=== PATIENT | female | born 1995 | race Caucasian/White ===

== ENCOUNTER 2019-04-09 21:14 | Outpatient (CLI) | payer OTHER ==
[~2019-04-09] VITALS: Ht 165.1 cm; Wt 56.8 kg
[2019-04-09 21:24] VITALS: Ht 165.1 cm; Wt 56.8 kg
[2019-04-09] MEDS ORDERED: PRENAVITE1 TAB PO (21:27)
[2019-04-09 21:43] VITALS: BP 132/78
[2019-04-09 21:46] LABS: BASOPHILS 0.1 % (0-2); EOSINOPHILS 0.3 % (0-7); HEMATOCRIT 37.9 % (36.0-48.0); HEMOGLOBIN 13.2 g/dL (12-16); IMMATURE GRANULOCYTES 0.3 % (0-5); LYMPHOCYTES 6.9 % (15-50); MCH 31.7 pg (26.0-34.0); MCHC 34.8 g/dL (31.0-37.0); MCV 90.9 fL (80.0-100.0); MEAN PLATELET VOLUME 9.8 fL (7.4-10.4); MONOCYTES 4.7 % (2-11); NEUTROPHILS 87.7 % (40-80); PLATELET COUNT 175 10x3/uL (130-400); RBC 4.17 10x6/uL (4.00-5.40); RDW 12.6 % (11.5-14.5); WBC 17.4 10x3/uL (4.8-10.8)
[2019-04-09 21:47] LABS: APPEARANCE CLEAR (CLEAR); BILIRUBIN NEGATIVE (NEGATIVE); COLOR YELLOW (YELLOW); GLUCOSE NEGATIVE (NEGATIVE); KETONE MODERATE mg/dL (NEGATIVE); NITRITE POSITIVE (NEGATIVE); PROTEIN NEGATIVE (NEGATIVE); UROBILINOGEN NORMAL (NORMAL)
[2019-04-09 21:50] LABS: BACTERIA MANY /hpf (NEGATIVE); EPITHELIAL CELLS 0-5 /hpf (0-5); RED CELLS - URINE OCC /hpf (0-5); WHITE CELLS - URINE 0-5 /hpf (NEGATIVE)
[2019-04-09 21:58] LABS: CALC OSMOLALITY 276 mosm/kg (275-300); CALCIUM 8.8 mg/dL (8.5-10.1); CARBON DIOXIDE 24.6 mmol/L (21.0-32.0); CHLORIDE - SERUM 104 mmol/L (98-107); CREATININE - SERUM 0.7 mg/dL (0.6-1.3); GLUCOSE 94 mg/dL (74-106); POTASSIUM - SERUM 3.4 mmol/L (3.5-5.1); SODIUM 139 mmol/L (136-145); UREA NITROGEN 11 mg/dL (7-18); eGFR NON AFRICAN AMERICAN > 90 mL/min (90-120)
[2019-04-09 22:01] LABS: ALBUMIN 3.3 g/dL (3.4-5.0); ALKALINE PHOSPHATASE 77 U/L (46-116); ALT (SGPT) 24 U/L (10-68); BILIRUBIN - TOTAL 0.28 mg/dL (0.2-1.3)
[2019-04-10 01:13] LABS: APPEARANCE CLEAR (CLEAR); BILIRUBIN NEGATIVE (NEGATIVE); COLOR STRAW (YELLOW); GLUCOSE 1000 mg/dL (NEGATIVE); KETONE NEGATIVE (NEGATIVE); NITRITE NEGATIVE (NEGATIVE); PROTEIN TRACE mg/dL (NEGATIVE); SPECIFIC GRAVITY 1.005 (1.005-1.020); UROBILINOGEN NORMAL (NORMAL)
[2019-04-10 04:40] LABS: BASOPHILS 0.1 % (0-2); HEMATOCRIT 36.9 % (36.0-48.0); HEMOGLOBIN 12.4 g/dL (12-16); IMMATURE GRANULOCYTES 0.3 % (0-5); LYMPHOCYTES 12.9 % (15-50); MCH 31.2 pg (26.0-34.0); MCHC 33.6 g/dL (31.0-37.0); NEUTROPHILS 78.7 % (40-80); PLATELET COUNT 153 10x3/uL (130-400); RBC 3.97 10x6/uL (4.00-5.40); RDW 12.5 % (11.5-14.5)
[2019-04-10 04:45] LABS: MCV 92.9 fL (80.0-100.0); WBC 11.6 10x3/uL (4.8-10.8)
== END 2019-04-10 05:20 | disposition home or self-care (01) ==
LOC: D.LDO 21:14 → D.ER 21:14 → D.LD 21:14 → EDSTATUS 21:55 → D.LD 21:57 → D.LDO 04-10 05:20
PROVIDERS: Family Medicine; ATTEND Obstetrics & Gynecology
DX: O26.92 Pregnancy related conditions, unspecified, second trimester (principal); Z3A.20 20 weeks gestation of pregnancy; M54.9 Dorsalgia, unspecified; V49.9XXA Car occupant (driver) (passenger) injured in unspecified traffic accident, initial encounter

== ENCOUNTER 2019-04-11 10:20 | Outpatient (CLI) | payer OTHER ==
[2019-04-09 21:24] VITALS: BMI 20.8
[~2019-04-11 10:20] MED LIST: PRENAVITE1 TAB PO
== END 2019-04-11 12:03 | disposition home or self-care (01) ==
LOC: D.LDO 10:20
PROVIDERS: ATTEND Obstetrics & Gynecology
DX: O26.899 Other specified pregnancy related conditions, unspecified trimester (principal); M54.9 Dorsalgia, unspecified; R10.11 Right upper quadrant pain

== ENCOUNTER 2019-08-02 17:27 | Inpatient (IN) | payer OTHER ==
[2019-08-02] VITALS (7 sets, daily range): BP systolic 151–183; BP diastolic 81–96
[~2019-08-02] VITALS: Ht 165.1 cm; Wt 72.7 kg
[2019-08-02 19:04] LABS: HEMATOCRIT 38.4 % (36.0-48.0); HEMOGLOBIN 13.1 g/dL (12-16); MCHC 34.1 g/dL (31.0-37.0); MCV 87.9 fL (80.0-100.0); RBC 4.37 10x6/uL (4.00-5.40); WBC 11.2 10x3/uL (4.8-10.8)
--- NOTE | 2019-08-02 21:56 | NUR ---
2100 - BECAUSE OF UNIQUE CIRCUMSTANCES OF DELIVERY AND GENERAL ANESTHESIA, DECISION WAS MADE BY JENNIFER OROZCO RN TO TRANSPORT THE PT TO THE MAIN RECOVERY ROOM UPSTAIRS FOR PHASE 1 RECOVERY. RECOVERY WAS UNREMARKABLE EXCEPT EROS T THE PT HAD WELTS ALONG HER LEFT FOREARM AFTER ADMINISTRATION OF DEMEROL FOR INTENSE SHAKING. PT HAD NO DISCOMFORT AND WELTS WERE DETERMINED TO NOT NEED TREATMENT. RECEIVING NURSE AND SURGEON INFORMED.
--- NOTE | 2019-08-02 22:30 | NUR ---
RASHID CATH EMPTIED AT THIS TIME. 150 ML NOTED. Randal ARGUETA RN
[2019-08-02 23:39] LABS: HEMATOCRIT 34.7 % (36.0-48.0); HEMOGLOBIN 11.6 g/dL (12-16); LYMPHOCYTES 3.3 % (15-50); MCHC 33.4 g/dL (31.0-37.0); MCV 86.8 fL (80.0-100.0); MEAN PLATELET VOLUME 10.7 fL (7.4-10.4); NEUTROPHILS 94.5 % (40-80); PLATELET COUNT 184 10x3/uL (130-400); RDW 11.9 % (11.5-14.5); WBC 24.7 10x3/uL (4.8-10.8)
[2019-08-02 23:45] LABS: CALC OSMOLALITY 272 mosm/kg (275-300); CALCIUM 8.1 mg/dL (8.5-10.1); CARBON DIOXIDE 24.5 mmol/L (21.0-32.0); CHLORIDE - SERUM 103 mmol/L (98-107); CREATININE - SERUM 0.7 mg/dL (0.6-1.3); GLUCOSE 107 mg/dL (74-106); POTASSIUM - SERUM 4.1 mmol/L (3.5-5.1); SODIUM 137 mmol/L (136-145); UREA NITROGEN 10 mg/dL (7-18); eGFR NON AFRICAN AMERICAN > 90 mL/min (90-120)
[2019-08-02 23:51] LABS: ALBUMIN 2.5 g/dL (3.4-5.0); ALKALINE PHOSPHATASE 130 U/L (30-120); ALT (SGPT) 22 U/L (10-68); BILIRUBIN - DIRECT 0.08 mg/dL (0.00-0.30); BILIRUBIN - INDIRECT 0.09 mg/dL (0.00-1.00); BILIRUBIN - TOTAL 0.17 mg/dL (0.2-1.3); PROTEIN - SERUM 5.8 g/dL (6.4-8.2)
[2019-08-03] VITALS (14 sets, daily range): BP systolic 119–166; BP diastolic 68–107; Ht 165.1 cm; Wt 72.7 kg
[2019-08-03 00:19] LABS: BILIRUBIN NEGATIVE (NEGATIVE); GLUCOSE NEGATIVE (NEGATIVE); KETONE NEGATIVE (NEGATIVE); NITRITE NEGATIVE (NEGATIVE); UROBILINOGEN NORMAL (NORMAL)
[2019-08-03 00:21] LABS: BACTERIA NONE SEEN /hpf (NEGATIVE); EPITHELIAL CELLS 0-5 /hpf (0-5); RED CELLS - URINE 0-5 /hpf (0-5); WHITE CELLS - URINE 0-5 /hpf (NEGATIVE)
--- NOTE | 2019-08-03 00:30 | NUR ---
PT RESTING AT THIS TIME. NO COMPLAITNS OF PAIN. Randal ARGUETA RN
--- NOTE | 2019-08-03 01:06 | NUR ---
to room, pt resting quietly, respirations even and unlabored, did not disturb.
--- NOTE | 2019-08-03 02:15 | NUR ---
2140 PT REC'D FROM RECOVERY AT THIS TIME. FUNDUS FIRM AND MIDLINE U/1 WITH MODERATE LOCHIA NOTED. PITOCIN 20 UNITS IN 1 LITER NS TO PUMP AT RATE OF 125 ML/HR TO THE LEFT HAND. SITE CLEAR AND PATENT. DENIES PAIN. NO ACUTE DISTRESS NOTED. CALL LIGHT IN EASY REACH. Randal ARGUETA RN
--- NOTE | 2019-08-03 04:11 | NUR ---
PT REC'D IN BED AT THIS TIME. RESTING. VSS THIS AM. PERICARE PROVIDED. FUNDUS REMAINS FIRM. Randal ARGUETA RN
[2019-08-03 06:38] LABS: HEMATOCRIT 30.3 % (36.0-48.0); HEMOGLOBIN 10.2 g/dL (12-16); MCH 29.4 pg (26.0-34.0); MCHC 33.7 g/dL (31.0-37.0); MCV 87.3 fL (80.0-100.0); MEAN PLATELET VOLUME 10.7 fL (7.4-10.4); PLATELET COUNT 182 10x3/uL (130-400); RBC 3.47 10x6/uL (4.00-5.40); WBC 24.9 10x3/uL (4.8-10.8)
--- NOTE | 2019-08-03 06:45 | NUR ---
RASHID CATH EMPTIED AT THIS TIME. 700 ML OF CLEAR YELLOW URINE NOTED. Randal ARGUETA RN
[2019-08-03 07:06] LABS: LYMPHOCYTES 8 % (15-50); MONOCYTES 3 % (2-11); NEUTROPHILS 89 % (40-80)
[2019-08-03 07:07] LABS: PLATELET ESTIMATE NORMAL
--- NOTE | 2019-08-03 08:25 | NUR ---
SHIFT ASSESSMENT COMPLETED PER FLOWSHEET. VSS. FUNDUS FIRM MIDLINE AND U1 WITH SMALL AMT RUBRA LOCHIA, NO CLOTS NOTED. ELMO AND RASHID CARE DONE. PERIPAD CHANGED. 200 MLS CLEAR LIGHT YELLOW URINE EMPTIED FROM RASHID. DRSG TO LOWER TRANSVERSE ABD INCISION CLEAN DRY AND INTACT WITH NO DRAINAGE NOTED. IN VISITORS ARMS. PT REPORTS THAT SHE HAS PASSED FLATUS AND PASSED FLATUS DURING PERICARE WITH RN. SCD'S ON BLE CURRENTLY. RASHID CONTINUES TO DRAIN TO BEDSIDE DRAINAGE SYSTEM. TORADOL GIVEN AND EDUCATED ON MED, VERBALIZES UNDERSTANDING. REQUESTS TO GET OOB, WILL NOTIFY DR. HUBER AND REPORT OUTPT AND PT REQUEST TO GET OOB. POC DISCUSSED WITH PT AND PT FAMILY AT BEDSIDE, VERBALIZES UNDERSTANDING AND DENIES NEEDS. BED IN LOW POSITION, SRUP X2. CALL LIGHT AND PHONE WITHIN REACH. WILL CONTINUE TO MONITOR.
--- NOTE | 2019-08-03 11:29 | NUR ---
PAIN MEDICATION GIVEN PER REQUEST- RATES PAIN A 4 ON SCALE OF 0-10. RASHID CATH REMOVED WITH 100CC URINE IN CONTAINER. INSTRUCTED PT TO CALL WHEN NEEDS TO VOID.
--- NOTE | 2019-08-03 12:29 | NUR ---
UP TO BATHROOM- VOIDED 750CC. INTO SHOWER- TOLERATED WELL. BIKINI LINE DRESSING REMOVED- STERI STRIPS INTACT AND APPEARANCE WNL. STATES THAT IS PASSING GAS. DENIES NEEDS- STATES FEELS GOOD AFTER SHOWER.
--- NOTE | 2019-08-03 13:24 | OP ---
PATIENT NAME: JAMISON ROSE MEDICAL RECORD: [id number] :97 LOCATION:[id number] ADMISSION DATE:08/02/19 SURGEON: MARGARITO HUBER MD DATE OF OPERATION: 08/02/2019 PREOPERATIVE DIAGNOSES: 1. Active labor at 36 weeks. 2. Breech presentation. POSTOPERATIVE DIAGNOSES: 1. Active labor at 36 weeks. 2. Breech presentation PROCEDURE: Primary low transverse section. SURGEON: Margarito Huber MD PEDIATRIC CARDIOLOGIST: GERALDINE Sotelo. ANESTHESIA: General with endotracheal intubation. FINDINGS: Breech male , Apgars 9 and 9, weight 2322 grams. Unremarkable placenta. Uterus, tubes, and ovaries are unremarkable. SPECIMENS REMOVED: Placenta. SPECIMEN DISPOSITION: Discarded. ESTIMATED BLOOD LOSS: 700 cc. URINE: 600 cc of clear urine. FLUIDS: 1 liter of Lactated Ringer's. COMPLICATIONS: None. DRAIN: Blair to gravity. INDICATIONS: The patient is a 24-year-old G1, para 0, who presents in active labor. The patient was assessed and found to be breech at 4 cm. The patient rapidly began to change and section is called and moving urgently general anesthetic was referred. Risks and benefits were described to the patient and verbal consent given. DESCRIPTION OF PROCEDURE: After informed consent was assured, the patient was taken to the operating room where rapid sequence induction was performed after the patient was prepped and draped. Upon release, an incision was made in the lower abdomen and the abdomen was entered. The abdomen was entered using a Pelosi technique with the rectus bellies and the peritoneum entered. A DeLee all-purpose retractor was inserted over the bladder. A low transverse hysterotomy was performed and extended. Infant is delivered and using standard breech extraction technique. Cord was doubly clamped and cut and the was passed to the awaiting attendant. Placenta was delivered via Crede maneuver. Uterus exteriorized, cleared of all clot and debris. The hysterotomy was closed with a running stitch of chromic. Uterus is inspected and found to be OPERATIVE REPORT [id number] JAMISON ROSE hemostatic and returned to the abdomen. The pelvis was irrigated and irrigant removed. The rectus bellies were loosely approximated with a loose piece of chromic in the midline after being inspected. The fascia was now closed in a running fashion with Vicryl stitch. Subcutaneous tissues were irrigated, bleeding vessels cauterized, and the subcutaneous tissues were reapproximated with a plain gut stitch. The skin was closed with a subcuticular needle closed on a Job needle. Sterile dressing is applied. Sponge, lap, and needle counts being correct times 2. TRANSINT:[id number] Voice Confirmation ID: [id number] DOCUMENT ID: [id number] MARGARITO HUBER MD at 1324 CC: [id number] DICTATION DATE: 08/02/192155 FIRE INVESTIGATION LIEUTENANT: 08/03/19 0600 ADM IN [facility] [address] [place] [address]
--- NOTE | 2019-08-03 14:30 | NUR ---
INFANT TO MOTHER BY THIS RN. BANDS VERIFIED TO MATCH. PT NOTED TO BE UP TO BR CHANGING PADS AND PANTIES. BACK TO BED AMBULATORY WITH STEADY GAIT. PT INSTRUCTED ON EMPTYING BLADDER FREQUENTLY, AND S/S TO REPORT REGARDING LOCHIA. UNDERSTANDING VERBALIZED. INFANT FED 25ML, BURPED WELL. PT INSTRUCTED TO KEEP PT UPRIGHT FOR APPROX 15-20MIN TO HELP AVOID SPITTING UP. UNDERSTANDING VERBALIZED. SRUx2, CL IN REACH.
--- NOTE | 2019-08-03 16:30 | NUR ---
AMBULATING IN HALLWAY. VOIDED 500CC INTO CONTAINER- SMALL CLOT X 1 NOTED.
--- NOTE | 2019-08-03 16:38 | NUR ---
PT STATES HAS BEEN UP AND ABOUT IN ROOM. STATES WOULD LIKE PAIN MEDICATION AGAIN- RATES PAIN A 4 ON SCALE OF 0-10.
--- NOTE | 2019-08-03 19:01 | NUR ---
REPORT TO PM SHIFT.
--- NOTE | 2019-08-03 22:04 | NUR ---
PT AMBULATORY ON UNIT, GAIT STEADY, PT AMBULATED TO NURSERY WITH RN ON STANDY FOR ASSISTANCE AND FOB AT PT'S SIDE. NON-SKID SOCKS ON.
[2019-08-04 00:16] VITALS: BP 127/74
--- NOTE | 2019-08-04 00:16 | NUR ---
RN TO PT BEDSIDE, AMBIEN 10MG PO GIVEN AND TORADOL 30MG PO GIVEN. VSS. PT FUNDUS FIRM, MIDLINE, 2 BELOW, SCANT RUBRA LOCHIA NOTED. PT WOULD LIKE BABY TO BE TAKEN TO NURSERY ONCE SHE HAS FALLEN ASLEEP. THIS RN WILL CHECK ON PT IN 30 MINUTES. BED IN LOWEST POSITION, SIDE RAILS UP X2, CALL LIGHT IN REACH. NURSERY NUMBER ON PT INFORMATION BOARD. LIGHTS DIMMED.
--- NOTE | 2019-08-04 04:00 | NUR ---
lab called for am lab draw
[2019-08-04 04:12] VITALS: BP 127/66
--- NOTE | 2019-08-04 04:14 | NUR ---
VSS. PT STATES PAIN IS A 5/10 TO ABDOMINAL INCISION AREA. PERCOCET 5MG PO ADMINISTERED FOR PT'S PAIN.FUNDUS FIRM, MIDLINE, 2 BELOW. SCANT RUBRA LOCHIA NOTED, U.O. 800ML IN URINE HAT. PT PROVIDED WITH MORE ICE WATER. PT STATES ALL HER OTHER NEEDS HAVE BEEN MET. LIGHTS DIMMED, PT WEARING NON-SKID SOCK. BED IN LOWEST POSITION, SIDE RAILS UP X2, CALL LIGHT WITHIN REACH.
--- NOTE | 2019-08-04 04:34 | NUR ---
CBC COLLECTED VIA BUTTERFLY TO RIGHT AC, PT TOLERATED WELL. LABS SENT TO LAB.
[2019-08-04 04:39] LABS: BASOPHILS 0.1 % (0-2); EOSINOPHILS 0.5 % (0-7); HEMATOCRIT 25.7 % (36.0-48.0); HEMOGLOBIN 8.6 g/dL (12-16); IMMATURE GRANULOCYTES 0.3 % (0-5); LYMPHOCYTES 15.9 % (15-50); MCH 29.6 pg (26.0-34.0); MCHC 33.5 g/dL (31.0-37.0); MCV 88.3 fL (80.0-100.0); MEAN PLATELET VOLUME 9.9 fL (7.4-10.4); MONOCYTES 5.7 % (2-11); NEUTROPHILS 77.5 % (40-80); PLATELET COUNT 164 10x3/uL (130-400); RBC 2.91 10x6/uL (4.00-5.40); RDW 12.2 % (11.5-14.5)
[2019-08-04 04:40] LABS: WBC 13.9 10x3/uL (4.8-10.8)
[2019-08-04 07:15] VITALS: BP 114/60
--- NOTE | 2019-08-04 07:15 | NUR ---
RECEIVED PT LYING SUPINE IN BED. WAKES UPON ENTERING ROOM. AAO X 3. VSS. HRRR WITHOUT AUDIBLE MURMUR. BBS CLEAR. BS X 4. ABDOMEN SOFT/NON-DISTENDED. FUNDUS FIRM AT U/2. RUBRA LOCHIA SMALL AMT. NO CLOTS NOTED. ABDOMINAL INCISION OPEN TO AIR. NO REDNESS, SWELLING OR DRAINAGE NOTED. NEG HOMANS' SIGN. PPP. MILD, NON-PITTING EDEMA NOTED TO BLE. SL TO LEFT WRIST. SITE CLEAR. PT C/O ABDOMINAL PAIN OF "4" ON 0-10 PAIN SCALE. FRESH ICE WATER PROVIDED TO PT. SR UP X 2. CALL LIGHT IN REACH. VOICES NO OTHER C/O OR NEEDS AT THIS TIME.
--- NOTE | 2019-08-04 07:20 | NUR ---
T/C FROM PT MOM RECEIVED PER Renata STRICKLAND RN. PT MOM REQUESTING INFORMATION ABOUT PT LABS. INFORMED PER Renata STRICKLAND RN THAT INFORMATION CANNOT BE GIVEN OUT WITHOUT PT PERMISSION AND CODE. NO CODE NOTED ON PT CHART.
--- NOTE | 2019-08-04 07:23 | NUR ---
PT QUESTIONED ON CODE BEING GIVEN ON ADMISSION. PT STATES DOESN'T KNOW CODE OR HAVE A CODE THAT WAS GIVEN. PT STATES "I FILLED OUT A BUNCH OF PAPERS WHEN I GOT HERE". INFORMED PT THAT NO PAPERWORK NOTED ON PT CHART. PT STATES OK FOR PT MOTHER TO OBTAIN PT INFORMATION. ADMISSIONS DEPT NOTIFIED PT NEEDS CODE/PIN NUMBER FOR FAMILY TO BE ABLE TO OBTAIN INFORMATION ABOUT PT. ADMISSIONS STATES NO PIN HAD BEEN ASSIGNED. PIN OBTAINED AND FORM GIVEN TO PT WITH PIN NUMBER ON IT. PT INSTRUCTED THAT INFORMATION CAN BE GIVEN OUT TO ANYONE WHO CALLS AND GIVES PIN NUMBER.
--- NOTE | 2019-08-04 07:35 | NUR ---
TORADOL 10 MG GIVEN PO ORDERED FOR PT C/O PAIN OF "5" ON 0-10 PAIN SCALE. INSTRUCTED ON MED. VERBALIZES UNDERSTANDING.
[2019-08-04 07:58] LABS: RAPID PLASMA REAGIN Non Reactive (Non Reactive)
--- NOTE | 2019-08-04 07:59 | NUR ---
DR HUBER NOTIFIED OF [facility] THIS AM. NO NEW ORDERS.
--- NOTE | 2019-08-04 09:00 | NUR ---
dr schafer here to see pt- dr schafer discusses in depth concerning wbc and physiology. pt states understanding and denies concerns.
--- NOTE | 2019-08-04 10:02 | NUR ---
MARIE PATEL, ACCOUNTING ADMINISTRATIVE ASSISTANT AT BEDSIDE ASSISTING AND INSTRUCTING ON BF TECHNIQUES AND ANSWERING PT QUESTIONS. PT DENIES NEEDS FROM RN AT THIS TIME.
--- NOTE | 2019-08-04 10:43 | NUR ---
MARIE, LACE AND TEXTILES RESTORER REMAINS IN ROOM ASSISTING PT.
--- NOTE | 2019-08-04 11:08 | NUR ---
DR. PEREZ AT DESK TO FOLLOW UP ON POC FOR MOM. PER DR. PEREZ PT IS REQUESTING TO D/C HOME TODAY IF POSSIBLE BUT STATES SHE WAS TOLD THAT SHE CAN'T D/C UNTIL TOMORROW MORNING. PER Renata KNIGHT RN WHO WAS IN ROOM WHEN DR. HUBER ROUNDED AND DISCUSSED POC PT WAS GIVEN OPTION OF D/C'ING HOME THIS AFTERNOON PT REQUESTED TO STAY UNTIL IN THE MORNING. DR. HUBER CALLED, POC DISCUSSED. ORDERS REC'D THAT PT CAN D/C WHEN D/C'S HOME.
[2019-08-04 11:44] VITALS: BP 130/80
--- NOTE | 2019-08-04 11:44 | NUR ---
C/O ABD AND INCISIONAL DISCOMFORT, PERCOCET GIVEN PER PT REQUEST. REFUSES 10 MG PERCOCET, STATES THAT IT MAKES HER TO SLEEPY. L WRIST SL PIV REMOVED WITH TIP INTACT PER PT REQUEST. INFANT IN NBN AT THIS TIME. QUESTIONS REGARDING PP DEPRESSION ANSWERED AND PT EDUCATED ON S/S OF PP DEPRESSION TO REPORT VS "BABY BLUES" VERBALIZES UNDERSTANDING AND DENIES ADDITIONAL QUESTIONS. PT REPORTS THAT SHE IS "EXHAUSTED" AND ENCOURAGED TO REST. LIGHTS OFF. DENIES ADDITIONAL NEEDS. BED IN LOW POSITION WITH SRUP X2. CALL LIGHT AND PHONE WITHIN REACH. WILL CONTINUE TO MONITOR.
--- NOTE | 2019-08-04 11:50 | NUR ---
Williams Quijano@ 9:00 S: Patient states is going ok. She doesn't know how much baby is getting when attempting to latch. Her nipples don't stay hard and she doesn't know which breast to feed infant. States she has been given a nipple shield and will latch great with it. She is unsure if infant can breathe when latching on the breast. She has been giving formula, how often varies if will latch. Infant doesn't latch good without the shield. Patient does get WI and would like to make a WI appointment. O: Patient sitting on sofa, FOB is holding , both parents talking among each other. Praised for and asked how can I help? Validated patients concern. Asked patient to show me how she has been holding for feedings? Explained to patient how to hold for feedings. CLC had patient place at the breast in different positions to verify she understands how to hold infant. Infant should always be placed tummy to tummy, directly in front on nipple, and allow infant to self-latch. Showed different options for holding while including laid back . CLC took pictures on patient phone to show her how to hold infant and to show when is latched at the breast in the correct position, is able to breathe. Explained takes time, practice, and patience in the beginning. Both mother and are learning how to breastfeed and time is needed to learn. It's important to relax when . Mistakes are ok when learning, just ask for help so we can assist with latching or any other questions or concerns. Explained infant feeding cues, how to verify infant is removing milk from the breast, dirty diaper count, how to verify infant latch is correct, ways when show when content following feeding, and encourage to address all questions with nursing staff. Made WIC appointment for mother and while CLC was in room. A: Patient has questions and concerns with latch. P: Patient will address all questions and concerns with nursery staff. Carson Faulkner, [employer]
--- NOTE | 2019-08-04 12:13 | NUR ---
PT'S MOTHER CALLS UNIT, PIN NUMBER AND PT VERIFIED. QUESTIONS REGARDING LAB WORK ANSWERED AND POLICY REGARDING RELEASING INFO OVER THE PHONE REVIEWED WTIH PT'S MOTHER, VERBALIZES UNDERSTANDING AND APPRECIATION.
--- NOTE | 2019-08-04 12:26 | NUR ---
PAIN REASSESSMENT COMPLETED. RESTING QUIETLY WITH EYES CLOSED IN SEMI-FOWLERS POSITION. RESP REGULAR AND UNLABORED, NO S/S OF DISTRESS NOTED. WILL CONTINUE TO MONITOR. BED IN LOW POSITION WITH SRUP X2. CALL LIGHT AND PHONE WITHIN REACH.
--- NOTE | 2019-08-04 13:25 | NUR ---
AMBULATORY TO NBN. STEADY GAIT NOTED. C/O PAIN 09/14. TORADOL GIVEN, DENIES ADDITIONAL NEEDS. ICE WATER PROVIDED. REMAINS IN NBN BOTTLE FEEDING INFANT UNDER WARMER.
--- NOTE | 2019-08-04 13:41 | NUR ---
CALLED TO NBN BY Jamal BERRY LPN D/T PT C/O FEELING TOO HOT. BACK TO ROOM TO REST PER PT REQUEST. ENCOURAGED TO REST WHILE INFANT REMAINS IN NBN, VERBALIZES AGREEMENT. ASSISTED TO BED. BED IN LOW POSITION, SRUP X2. CALL LIGHT AND PHONE WITHIN REACH. WILL CONTINUE TO MONITOR.
--- NOTE | 2019-08-04 14:03 | NUR ---
DR. HUBER ON UNIT. NOTIFIED OF INFANTS TEMP DROP. PRESCRIPTIONS LEFT ON PT CHART. ORDERS REC'D.
--- NOTE | 2019-08-04 14:16 | NUR ---
RESTING QUIETLY IN SEMI-FOWLERS POSITION WITH EYES CLOSED. RESP REGULAR AND UNLABORED, NO S/S OF DISTRESS NOTED. BED IN LOW POSITION WITH SRUP X2. CALL LIGHT AND PHONE WITHIN REACH. WILL CONTINUE TO MONITOR. REMAINS IN NBN. WILL CONTINUE TO MONITOR.
--- NOTE | 2019-08-04 15:36 | NUR ---
RESTING ON RIGHT SIDE WITH EYES CLOSED. RESP REGULAR AND UNLABORED, NO S/S OF DISTRESS NOTED. PT NOT DISTURBED TO ALLOW FOR REST. BED IN LOW POSITION WITH SRUP X2. CALL LIGHT, PHONE WITHIN REACH.
--- NOTE | 2019-08-04 16:23 | NUR ---
LINENS CHANGED. IN SHOWER. PT'S MOM IN ROOM WHILE IN SHOWER. VERBALIZES USE OF CALL LIGHT USE.
--- NOTE | 2019-08-04 17:09 | NUR ---
BOTTLE FEEDING . DENIES NEEDS AT THIS TIME. CONVERSING WITH HER MOTHER. WILL CONTINUE TO MONITOR AND ASSIST PRN. BED IN LOW POSITION WITH SRUP X2. CALL LIGHT AND PHONE WTIHIN REACH. WILL CONTINUE TO MONITOR.
--- NOTE | 2019-08-04 18:22 | NUR ---
C/O ABD AND INCSION DISCOMFORT, REQUEST PERCOCET, GIVEN PER PT REQUEST. ICE WATER PROVIDED. DENIES ADDITIONAL NEEDS. BED IN LOW POSITION WITH SRUP X2. CALL LIGHT AND PHONE WITHIN REACH.
--- NOTE | 2019-08-04 19:50 | NUR ---
REPORT GIVEN BY THAD.
--- NOTE | 2019-08-04 20:20 | NUR ---
ASSESSMENT COMPLETED. PT IS UP AND ABOUT IN THE ROOM AND HALLS. SHE HAS BEEN TRYING ON NEW CLOTHES. SKIN IS WARM AND DRY. INCISION SITE LOOKS GOOD. NO DRAINAGE NOTED. LOCHIA SMALL. FUNDUS IS FIRM. HEART SOUNDS ARE WNL. LUNGS CLEAR, BOWEL SOUNDS HEARD. PT DOES NOT HAVE A SALINE LOCK. NO C/O.
[2019-08-04 20:30] VITALS: BP 140/76
--- NOTE | 2019-08-04 22:23 | NUR ---
PT CALLED FOR PAIN MED AND IT WAS GIVEN AT THIS TIME. I HAVE ENCOURAGED HER TO GO TO BED FOR REST SINCE THE BABY IS IN THE NURSERY.
[2019-08-05 00:05] VITALS: BP 37/78
--- NOTE | 2019-08-05 00:10 | NUR ---
VS TAKEN. NO NEW C/O. PT IS TRYING TO SLEEP.
--- NOTE | 2019-08-05 02:00 | NUR ---
PT WALKING IN HALLWAYS. NO C/O
--- NOTE | 2019-08-05 02:27 | NUR ---
PT.C/O OF PAIN AT THE INCISION LINE. TORADOL 10 MG WAS GIVEN PO. PT DID NOT WANT A PERCOCET.
[2019-08-05 04:05] VITALS: BP 131/79
--- NOTE | 2019-08-05 04:14 | NUR ---
PT AND BOYFRIEND ARE WITH THE BABY IN ROOM. PT HAS NO C/O AT THIS TIME.
--- NOTE | 2019-08-05 06:15 | NUR ---
PT IS SLEEPING AT THIS TIME. BOYFRIEND IS ASLEEP, TOO
[2019-08-05 07:42] VITALS: BP 127/75
--- NOTE | 2019-08-05 07:52 | NUR ---
AM ASSESSMENT COMPLETED, REVIEWED PLAN OF CARE FOR TODAY INCLUDING DISCHARGE. PROVIDED PRN MEDS PER PT REQUEST ALONG WITH [facility]. CALL LIGHT PLACED WITHIN EASY REACH OF PT. QUESTIONS ANSWERED, PT STATES UNDERSTANDING OF ALL INFORMATION DISCUSSED. AMBULATORY IN ROOM WITH NAD NOTED. CONTINUE TO MONITOR.
--- NOTE | 2019-08-05 08:15 | NUR ---
ROUNDS COMPLETED, NAD NOTED, PT SMILING, DENIES NEEDS AT PRESENT. CONTINUE TO MONITOR.
[2019-08-05] MEDS ORDERED: PERCOCET 7.5/321 TAB PO ×2 (09:03→09:06)
[2019-08-05] MEDS ORDERED: IBUPROFEN800 MG PO (09:04)
--- NOTE | 2019-08-05 09:20 | NUR ---
ROUNDS COMPLETED, DENIES NEEDS OR CONCERNS, NAD, WILL MONITOR.
--- NOTE | 2019-08-05 10:28 | NUR ---
REVIEWED DISCHARGE INSTRUCTIONS WITH PT AND PT MOTHER, QUESTIONS ANSWERED, HANDOUTS PROVIDED FOR REVIEW AT HOME, PT AND PT MOTHER STATE UNDERSTANDING OF ALL INFORMATION PROVIDED TODAY. ADDITIONAL MESH PANTIES PROVIDED PER REQUEST AND NOTIFIED NURSERY STAFF OF PT READINESS FOR DISCHARGE CITING PLANS TODAY.
--- NOTE | 2019-08-05 11:35 | NUR ---
pt requesting prn pain med for the ride home for c/o pain 5/10 on numeric pain scale. same provided, no other needs voiced at this time.
--- NOTE | 2019-08-05 12:05 | NUR ---
patient discharged with infant secured in infant carrier to private auto with all personal belongings, nad noted.
== END 2019-08-05 12:05 | disposition home or self-care (01) | DRG 788 ==
LOC: D.LDO 17:27 → D.LD 18:20
PROVIDERS: Student in an Organized Health Care Education/Training Program; ADMIT Obstetrics & Gynecology; ATTEND Obstetrics & Gynecology
PROC: 10D00Z1 Extraction of Products of Conception, Low, Open Approach (ICD-10-PCS; principal; 2019-08-02 20:22)
DX: O64.1XX0 Obstructed labor due to breech presentation, not applicable or unspecified (principal); Z37.0 Single live birth; Z3A.36 36 weeks gestation of pregnancy; Z87.891 Personal history of nicotine dependence